=== PATIENT | male | born 1950 | race Caucasian/White ===

== ENCOUNTER 2017-12-20 15:41 | Emergency (ER) | payer OTHER, SELFPAY ==
--- NOTE | 2017-12-20 16:07 | ER ---
Nurse's Notes [facility] Name: Skyler Campoverde Age: 67 yrs Sex: Male : 1950 Arrival Date: 12/20/2017 Time: 15:43 Bed 18 Private MD: Luke Peters H Diagnosis: Other contact with nonvenomous snake Presentation: 12/20 15:43 Presenting complaint: Patient states: Snake bite to Right Shoe, unsure if contact with sg the skin was made, pt denies pain and swelling at this time, reports his big toe fells "funny". Transition of care: patient was not received from another setting of care. Onset of symptoms was December 20, 2017. Risk Assessment: Do you want to hurt yourself or someone else? Patient reports no desire to harm self or others. Initial Sepsis Screen: Does the patient meet any 2 criteria? No. Patient's initial sepsis screen is negative. Does the patient have a suspected source of infection? No. Patient's initial sepsis screen is negative. Care prior to arrival: None. 15:43 Method Of Arrival: Ambulatory sg 15:43 Acuity: SHYANNE 4 sg Historical: - Allergies: 15:46 Augmentin; sg 15:46 Cipro PO; sg 15:46 Zithromax Z-Ed; sg - Home Meds: 15:46 montelukast oral oral [Active]; sg 15:49 amlodipine oral [Active]; Metoprolol Tartrate Oral [Active]; sg - PMHx: 15:53 Hypertension; COPD; sg - PSHx: 15:53 None; sg - Immunization history:: Adult Immunizations up to date. - Social history:: Smoking status: Patient uses tobacco products, smokes one pack cigarettes per day. - Ebola Screening: : Patient negative for fever greater than or equal to 101.5 degrees Fahrenheit, and additional compatible Ebola Virus Disease symptoms Patient denies exposure to infectious person Patient denies travel to an Ebola-affected area in the 21 days before illness onset No symptoms or risks identified at this time. - Family history:: not pertinent. - Hospitalizations: : No recent hospitalization is reported. Screenin:12 Abuse screen: Denies threats or abuse. Denies injuries from another. Nutritional jl7 screening: No deficits noted. Tuberculosis screening: No symptoms or risk factors identified. Fall Risk None identified. Assessment: 16:00 General: Appears in no apparent distress. uncomfortable, Behavior is cooperative, jl7 appropriate for age, anxious. Pain: Denies pain. Neuro: Level of Consciousness is awake, alert, obeys commands, Oriented to person, place, time. Cardiovascular: Patient's skin is warm and dry. Respiratory: Airway is patent Respiratory effort is even, unlabored, Respiratory pattern is regular, symmetrical. GI: No signs and/or symptoms were reported involving the gastrointestinal system. : No signs and/or symptoms were reported regarding the genitourinary system. EENT: No signs and/or symptoms were reported regarding the EENT system. Derm: Skin is intact, Skin is pink, warm \\T\\ dry. Vital Signs: 15:46 Pulse 114; Resp 18 S; Temp 98.9; Pulse Ox 99% on R/A; Weight 92.99 kg; Height 6 ft. 3 sg in. (190.50 cm) (R); Pain 1/10; 15:49 BP 169 / 96; sg 16:12 BP 156 / 88; Pulse 105; Resp 16 S; Pulse Ox 100% on R/A; Pain 0/10; jl7 15:46 Body Mass Index 25.62 (92.99 kg, 190.50 cm) sg ED Course: 15:43 Patient arrived in ED. sg 15:43 Luke Peters DO is Private Physician. sg 15:43 Arm band placed on. sg 15:45 Triage completed. sg 15:51 Ney Meng MD is Attending Physician. rn 16:00 Patient has correct armband on for positive identification. Bed in low position. Call jl7 light in reach. Side rails up X 1. Pulse ox on. NIBP on. 16:04 Bentley Montanez, JENNIFER is Primary Nurse. jl7 16:06 Luke Peters DO is Referral Physician. rn 16:13 No provider procedures requiring assistance completed. Patient did not have IV access jl7 during this emergency room visit. Administered Medications: No medications were administered Outcome: 16:06 Discharge ordered by . rn 16:13 Discharged to home ambulatory. jl7 16:13 Condition: stable 16:13 Discharge instructions given to patient, Instructed on discharge instructions, follow up and referral plans. Demonstrated understanding of instructions, follow-up care. 16:13 Patient left the ED. jl7 Signatures: Isak Eaton RN RN sg Nieto, Roman, MD MD rn Leal, Jahala, RN RN jl7
--- NOTE | 2017-12-20 16:07 | EDPHYS ---
Physician Documentation [facility] Name: Skyler Campoverde Age: 67 yrs Sex: Male : 1950 Arrival Date: 12/20/2017 Time: 15:43 Bed 18 Private MD: Luke Peters H ED Physician Ney Meng HPI: 12/20 16:02 This 67 yrs old Male presents to ER via Ambulatory with complaints of Snake rn bite. 16:02 Onset: The symptoms/episode began/occurred 1 hour(s) ago. Severity of symptoms: At rn their worst the symptoms were very mild, in the emergency department the symptoms are unchanged. The patient has not experienced similar symptoms in the past. Reports walking down ramp, saw a snake, struck at him, hit shoe, did not make contact with skin/foot, reports episode was scary and came to make sure was ok, snake was black with brown stripes, no nausea/vomiting. No puncture wound on shoe or foot.. Historical: - Allergies: 15:46 Augmentin; sg 15:46 Cipro PO; sg 15:46 Zithromax Z-Ed; sg - Home Meds: 15:46 montelukast oral oral [Active]; sg 15:49 amlodipine oral [Active]; Metoprolol Tartrate Oral [Active]; sg - PMHx: 15:53 Hypertension; COPD; sg - PSHx: 15:53 None; sg - Immunization history:: Adult Immunizations up to date. - Social history:: Smoking status: Patient uses tobacco products, smokes one pack cigarettes per day. - Ebola Screening: : Patient negative for fever greater than or equal to 101.5 degrees Fahrenheit, and additional compatible Ebola Virus Disease symptoms Patient denies exposure to infectious person Patient denies travel to an Ebola-affected area in the 21 days before illness onset No symptoms or risks identified at this time. - Family history:: not pertinent. - Hospitalizations: : No recent hospitalization is reported. ROS: 16:02 Constitutional: Negative for fever, chills, and weight loss, Eyes: Negative for injury, rn pain, redness, and discharge, Neck: Negative for injury, pain, and swelling, Cardiovascular: Negative for chest pain, palpitations, and edema, Respiratory: Negative for shortness of breath, cough, wheezing, and pleuritic chest pain, Abdomen/GI: Negative for abdominal pain, nausea, vomiting, diarrhea, and constipation, MS/Extremity: Negative for injury and deformity, Skin: Negative for injury, rash, and discoloration, Neuro: Negative for headache, weakness, and seizure. Exam: 16:02 Constitutional: This is a well developed, well nourished patient who is awake, alert, rn very anxious, but sitting in bed, legs crossed on phone Head/Face: Normocephalic, atraumatic. Eyes: Pupils equal round and reactive to light, extra-ocular motions intact. Lids and lashes normal. Conjunctiva and sclera are non-icteric and not injected. Cornea within normal limits. Periorbital areas with no swelling, redness, or edema. MS/ Extremity: Pulses equal, no cyanosis. Neurovascular intact. Full, normal range of motion. Equal circumference. No evidence of puncture wound/erythema/abrasions. Neuro: Awake and alert, GCS 15, oriented to person, place, time, and situation. Cranial nerves II-XII grossly intact. Motor strength 5/5 in all extremities. Sensory grossly intact. Cerebellar exam normal. Normal gait. Vital Signs: 15:46 Pulse 114; Resp 18 S; Temp 98.9; Pulse Ox 99% on R/A; Weight 92.99 kg; Height 6 ft. 3 sg in. (190.50 cm) (R); Pain 1/10; 15:49 BP 169 / 96; sg 16:12 BP 156 / 88; Pulse 105; Resp 16 S; Pulse Ox 100% on R/A; Pain 0/10; jl7 15:46 Body Mass Index 25.62 (92.99 kg, 190.50 cm) MDM: 15:51 Patient medically screened. rn 16:02 Data reviewed: vital signs, nurses notes, and as a result, I will discharge patient. rn Counseling: I had a detailed discussion with the patient and/or guardian regarding: the historical points, exam findings, and any diagnostic results supporting the discharge/admit diagnosis, the need for outpatient follow up, to return to the emergency department if symptoms worsen or persist or if there are any questions or concerns that arise at home. Special discussion: I discussed with the patient/guardian in detail that at this point there is no indication for admission to the hospital. It is understood, however, that if the symptoms persist or worsen the patient needs to return immediately for re-evaluation. ED course: Pt without wound or break in skin, asymptomatic other than being anxious, will dc home as snake strike to shoe, without envenomation or bite.. Administered Medications: No medications were administered Disposition: 12/20/17 16:06 Discharged to Home. Impression: Other contact with nonvenomous snake. - Condition is Stable. - Discharge Instructions: Snake Bite. - Medication Reconciliation Form, Thank You Letter, Antibiotic Education, Prescription Opioid Use form. - Follow up: Luke Peters DO; When: As needed; Reason: Recheck today's complaints, Re-evaluation by your physician. - Problem is new. - Symptoms have improved. Signatures: Isak Eaton RN JENNIFER Ney Meng MD MD rn Leal, Jahala, RN RN jl7 Corrections: (The following items were deleted from the chart) 16:13 16:06 12/20/2017 16:06 Discharged to Home. Impression: Other contact with nonvenomous jl7 snake. Condition is Stable. Forms are Medication Reconciliation Form, Thank You Letter, Antibiotic Education, Prescription Opioid Use. Follow up: Luke Peters; When: As needed; Reason: Recheck today's complaints, Re-evaluation by your physician. Problem is new. Symptoms have improved. rn
== END 2017-12-20 16:13 | disposition home or self-care (01) ==
LOC: ER 15:41
DX: F43.0 Acute stress reaction (principal); W59.19XA Other contact with nonvenomous snake, initial encounter; Y92.838 Other recreation area as the place of occurrence of the external cause; Z88.1 Allergy status to other antibiotic agents; I10 Essential (primary) hypertension; J44.9 Chronic obstructive pulmonary disease, unspecified; F17.210 Nicotine dependence, cigarettes, uncomplicated
CPT/HCPCS: 99283